=== PATIENT | female | born 1990 | race Two or more races ===

== ENCOUNTER 2018-09-02 20:05 | Observation (INO) | payer MEDICAID ==
[2018-09-02] MEDS ORDERED: PREN-96 PO (21:13)
== END 2018-09-02 21:45 | disposition home or self-care (01) | DRG 566 ==
LOC: LDRP 20:05
PROVIDERS: ADMIT Specialist; ATTEND Specialist
DX: O00.01 Abdominal pregnancy with intrauterine pregnancy (principal); O26.893 Other specified pregnancy related conditions, third trimester; M54.9 Dorsalgia, unspecified; N89.8 Other specified noninflammatory disorders of vagina; Z3A.26 26 weeks gestation of pregnancy
CPT/HCPCS: 59025; 81002; G0378